=== PATIENT | male | born 1935 | race Asian ===

== ENCOUNTER 2022-04-29 16:04 | Inpatient (IN) | payer OTHER ==
[~2022-04-29] VITALS: Ht 170.2 cm; Wt 64.4 kg
--- NOTE | 2022-04-29 16:05 | NUR ---
RECEIVED PT 87 YRS MALE CAME BY SUHAS from home C/O GENRALIZED WEEKNESS ANd chest pain with palpation hr 165/min ekg at bed jerome
--- NOTE | 2022-04-29 16:15 | NUR ---
moe sent to lab
--- NOTE | 2022-04-29 16:45 | NUR ---
covid swab sent to lab
[2022-04-29 16:46] LABS: BASOPHILS # (AUTO) 0.1 K/uL (0.0-0.2); BASOPHILS % (AUTO) 0.2 % (0.0-2.0); EOSINOPHILS % (AUTO) 1.2 % (0.0-6.0); HEMATOCRIT 41 % (39-51); HEMOGLOBIN 13.4 g/dL (13.5-17.5); LYMPHOCYTES # (AUTO) 1.3 K/uL (0.8-4.8); LYMPHOCYTES % (AUTO) 5.9 % (20.0-44.0); MEAN CORPUSCULAR HGB CONC 32 g/dl (31.0-36.0); MEAN CORPUSCULAR VOLUME 92 fL (80-96); MONOCYTES # (AUTO) 1.5 K/uL (0.1-1.30); MONOCYTES % (AUTO) 6.7 % (2.0-12.0); PLATELET COUNT (AUTO) 490 K/uL (150-450); RED BLOOD CELL COUNT(AUTO) 4.49 MIL/uL (4.5-6.0); WHITE BLOOD COUNT (AUTO) 22.1 K/uL (4.3-11.0)
[2022-04-29 16:59] LABS: CALCIUM, SERUM 8.9 mg/dL (8.5-10.1); CARBON DIOXIDE 27 mmol/L (21-32); CHLORIDE 101 mmol/L (98-107); CREATININE 0.8 mg/dL (0.6-1.3); GLUCOSE 131 mg/dL (74-106); POTASSIUM 5.4 mmol/L (3.5-5.1); SODIUM SERUM 134 mmol/L (136-145); UREA NITROGEN, BLOOD 14 mg/dL (7-18)
--- NOTE | 2022-04-29 17:01 | NUR ---
UA SENT TO LAB
--- NOTE | 2022-04-29 17:12 | NUR ---
[facility] AT BED SIDE (MARCIAL GARCIA ) AT BED SIDE DR. YESSY BARFIELD WITH [facility] CONDITION UP DATE
[2022-04-29 17:17] LABS: THYROID STIMULATING HORMONE 1.605 uIU/mL (0.358-3.74)
[2022-04-29] MEDS ORDERED: CEFTRIAXONE 1GM BAG (ER ONLY) 50 ML IV ONE (17:30)
[2022-04-29] MEDS ORDERED: IV NS 0.9% 1,000 ML BAG IV ONE (17:30)
[2022-04-29] MEDS ORDERED: DOCUSATE SODIUM 100 MG CAPSULE PO PRN (17:30)
[2022-04-29] MEDS ORDERED: ACETAMINOPHEN 325 MG TABLET PO PRN (17:30)
[2022-04-29] MEDS ORDERED: DEXTROSE 50%-WATER 50 ML DISP.SYRIN IVP ONE (17:30)
[2022-04-29] MEDS ORDERED: MORPHINE SULFATE INJ 2 MG/ML DISP.SYRIN IV PRN (17:30)
[2022-04-29] MEDS ORDERED: INSULIN REGULAR, HUMAN 100 UNIT/ML 10 ML VIAL IV ONE (17:30)
[2022-04-29] MEDS ORDERED: MAG HYDROX/AL HYDROX/SIMETH 30 ML UDC PO PRN (17:30)
[2022-04-29] MEDS ORDERED: IV D5/ 0.9% NACL 1,000 ML IV PRN (17:30)
[2022-04-29] MEDS ORDERED: ONDANSETRON HCL/PF 4 MG/2 ML VIAL IVP PRN (17:30)
[2022-04-29] MEDS ORDERED: NTG 50 MG/D5W250 ML BOTTL 250 ML IV PRN (17:30)
[2022-04-29] MEDS ORDERED: NITROGLYCERIN 0.4 MG/TAB BOTTLE SL PRN (17:30)
--- NOTE | 2022-04-29 18:00 | NUR ---
HOSPITALIST PROVIDER AT BED SIDE ORDER WAS GIVEN
[2022-04-29 18:20] LABS: BILIRUBIN,URINE NEGATIVE (NEGATIVE); COLOR,URINE YELLOW (YELLOW); LEUKOCYTE ESTERASE ,URINE NEGATIVE (NEGATIVE); NITRITE, URINE NEGATIVE (NEGATIVE); PROTEIN,URINE NEGATIVE (NEGATIVE); UGLUCOSE NEGATIVE (NEGATIVE)
[2022-04-29 18:24] LABS: BACTERIA,URINE None seen /HPF (None Seen); MUCUS,URINE Few /LPF (None Seen); RBC,URINE 0-2 /HPF (0-2); SQUAMOUS EPITHELIAL CELL,UR 0-2 /HPF (None Seen); WBC,URINE 0-2 /HPF (0-3)
[2022-04-29] MEDS ORDERED: IV NS 0.9% 500 ML IV ONE (19:00)
--- NOTE | 2022-04-29 19:27 | NUR ---
HAND OFF TO [facility]
[2022-04-29 19:31] LABS: MAGNESIUM 2.5 mg/dL (1.8-2.4); PHOSPHORUS 4.6 mg/dL (2.5-4.9)
[2022-04-29 20:29] LABS: BILIRUBIN,DIRECT 0.2 mg/dL (0.0-0.2); BILIRUBIN,TOTAL 0.5 mg/dL (0.2-1.0)
--- NOTE | 2022-04-29 21:24 | NUR ---
REPORT GIVEN TO SYLVIA
[2022-04-29] MEDS: SIMVASTATIN 20 MG TABLET PO SCH (22:00)
--- NOTE | 2022-04-29 22:25 | NUR ---
PT TRANSPORTED VIA GURNEY AND ACLS PROTOCOL IN STABLE CONDITION
[2022-04-29 22:59] VITALS: BP 98/48
--- NOTE | 2022-04-29 23:13 | NUR ---
CERTIFIED BENCH JEWELER TECHNICIAN NOTES PT ARRIVED TO UNIT VIA GURNEY PT WAS ABLE TO TRANSFER TO BED ON HIS OWN WITH SOME STAND BY ASSIST . PT IS SPANISH SPEAKING BUT IS ABLE TO COMMUNICATE BASIC NEEDS.PT DAUGHTER AND AT BEDSIDE ABLE TO PROVIDE TRANSLATION. PT A/O X4 ON ROOM AIR TOLERATING WELL. PT PLACED ON A TELE MONITOR AT THIS TIME. PT NOTED WITH IV ACCESS ON RFA#20G S/L AND LAC #20G RUNNING D5 NS@50ML/HR TOLERATING WELL. PT DID REFUSE ATORVASTATIN PER DAUGHTER PT DOES NOT HAVE HIGH CHOLESTEROL EXPLAINED THAT IT IS PROTOCOL FOR PT WITH CHEST PAIN PT STILL REFUSED X3. PT DAUGHTER ALSO REFUSED TO GIVE A LIST OF MEDICATIONS TAKEN AT HOME PER DAUGHTER" ITS NOT LIKE YOU WILL GIVE HIM AT NIGHT ANYWAY, HES GOING HOME IN THE MORNING SOON POSSIBLE ITS NOT NECESSARY.' DID ASK THE DAUGHTER MARCIAL TO PLEASE PROVIDE A LIST IN THE MORNING IF IT IS POSSIBLE WILL LET DAY SHIFT NURSE KNOW TO FOLLOW UP. PT WAS NOTED WITH SOME SACRAL REDNESS PICTURE TAKEN AND PLACED IN CHART.PT ORIENTED TO UNIT AND ROOM. TABLE WITHIN REACH. CALL LIGHT WITHIN REACH. BILATERAL SIDE RAILS UP FOR SAFETY. ALL NEEDS MET AT THIS TIME. WILL CONTINUE TO MONITOR. Addendum: 04/29/22 at 2345 by SYLVIA BELL RN per daughter her father is refusing any further lab draws explained to the family why ist important we redraw the troponin. daughter insisted enough blood has been taken he doesn't need anymore.
--- NOTE | 2022-04-29 23:45 | NUR ---
TURBINE ENGINEER NOTES PT REFUSED LAB DRAW RISK AND BENEFITS EXPLAINED X3 REFUSED X3. WILL CONTINUE TO MONITOR.
[2022-04-30 00:36] VITALS: BP 105/54
[2022-04-30 05:10] VITALS: BP 100/47
--- NOTE | 2022-04-30 06:38 | NUR ---
INCOME TAX ADJUSTER NOTES PT IN BED ASLEEP IN NO DISTRESS CONTINUOUS TO BE ON ROOM AIR. ALL NURSING NEEDS MET. BEDSIDE TABLE WITHIN EACH. CALL LIGHT WITHIN REACH. BED ALARM ON FOR SAFETY. BILATERAL SIDE RAILS UP FOR SAFETY. PT ON TELE MONITOR READING SR. PT HAS D5 NS @50ML/HR RUINING WELL ON THE LAC #20G. PT DID REFUSE LABS LAST NIGH. WILL ENDORSE TO DAY SHIFT NURSE TO SEE IF PT WILL AGREE TO HAVE LABS DRAWN TODAY. ENDORSE RITESH TO DAY SHIFT NURSE.
--- NOTE | 2022-04-30 07:38 | NUR ---
SUPERVISOR SPRING UP NOTES PT IN BED ASLEEP BUT EASILY AWAKE,NO DISTRESS NOTED AT THIS TIME ,ON ROOM AIR.NO SOB NOTED AT THIS TIME ,ALL NEEDS MET. BEDSIDE TABLE WITHIN EACH. CALL LIGHT WITHIN REACH. BED ALARM ON FOR SAFETY. BILATERAL SIDE RAILS UP FOR SAFETY.. PT HAS D5 NS @50ML/HR RUINING WELL ON THE LAC #20G. ON TELE MONITORS SR WITH PVC OCCASIONAL, HR 83 AT THIS TIME, WILL CONT TO MONITOR
[2022-04-30 08:00] VITALS: BP 117/69
[2022-04-30] MEDS: ASPIRIN 81 MG TAB.CHEW PO SCH (08:19)
[2022-04-30] MEDS: ENOXAPARIN SODIUM 40 MG/0.4 ML DISP.SYRIN SQ SCH (08:21)
[2022-04-30 08:38] LABS: BASOPHILS # (AUTO) 0.1 K/uL (0.0-0.2); BASOPHILS % (AUTO) 0.3 % (0.0-2.0); EOSINOPHILS % (AUTO) 1.5 % (0.0-6.0); HEMATOCRIT 34 % (39-51); HEMOGLOBIN 11.4 g/dL (13.5-17.5); LYMPHOCYTES % (AUTO) 4.9 % (20.0-44.0); MEAN CORPUSCULAR HGB CONC 33 g/dl (31.0-36.0); MEAN CORPUSCULAR VOLUME 90 fL (80-96); MONOCYTES # (AUTO) 1.3 K/uL (0.1-1.30); MONOCYTES % (AUTO) 6.3 % (2.0-12.0); NEUTROPHILS # (AUTO) 18.6 K/uL (1.8-8.9); PLATELET COUNT (AUTO) 442 K/uL (150-450); WHITE BLOOD COUNT (AUTO) 21.3 K/uL (4.3-11.0)
[2022-04-30 09:18] LABS: ALANINE AMINOTRANSFERASE 10 U/L (12-78); ALKALINE PHOSPHATASE 77 U/L (46-116); ASPARTATE AMINOTRANSFERASE 12 U/L (15-37); BILIRUBIN,TOTAL 0.7 mg/dL (0.2-1.0); CALCIUM, SERUM 8.2 mg/dL (8.5-10.1); CARBON DIOXIDE 25 mmol/L (21-32); CHLORIDE 102 mmol/L (98-107); CREATININE 0.6 mg/dL (0.6-1.3); GLUCOSE 100 mg/dL (74-106); MAGNESIUM 2.1 mg/dL (1.8-2.4); PHOSPHORUS 3.1 mg/dL (2.5-4.9); POTASSIUM 4.1 mmol/L (3.5-5.1); SODIUM SERUM 132 mmol/L (136-145); UREA NITROGEN, BLOOD 9 mg/dL (7-18)
--- NOTE | 2022-04-30 09:28 | NUR ---
HAIR OR BEAUTY SALON MANAGER/MED RECON UNABLE TO UPDATE HOME MEDICATION INFORMATION AT THIS TIME. PATIENT UNABLE TO PROVIDE ANY INFORMATION. PER PATIENT REQUESTED CALLED DAUGHTER-REZA, PER DAUGHTER WILL PROVIDE INFORMATION LATER. CN MADE AWARE.
[2022-04-30] MEDS ORDERED: INSU100V7 SQ (10:58)
[2022-04-30] MEDS ORDERED: NATE120T6 PO (10:58)
[2022-04-30] MEDS ORDERED: DRON2.5C18 PO (10:58)
[2022-04-30] MEDS ORDERED: DEXT-164 PO (10:58)
[2022-04-30] MEDS ORDERED: INSU100V42 SQ (10:58)
[2022-04-30] MEDS ORDERED: TAMS-12 PO (10:58)
[2022-04-30] MEDS ORDERED: SITA100T PO (10:58)
[2022-04-30] MEDS ORDERED: METO25TA3 PO (10:58)
[2022-04-30] MEDS ORDERED: NITR0.4T48 SL (10:58)
[2022-04-30] MEDS ORDERED: MULT-447 PO (10:58)
[2022-04-30] MEDS ORDERED: LATA2.5D15 EACHEYE (10:58)
--- NOTE | 2022-04-30 11:50 | NUR ---
television analyzer note per marika rn test technician ok to mild sliding sale
[2022-04-30] MEDS: BLOOD SUGAR DIAGNOSTIC 1 EACH STRIP VI SCH ×3 (11:59→22:11)
[2022-04-30 12:00] VITALS: BP_SYST 109; BP_SYST 93; BP_DIAS 46; BP_DIAS 59
[2022-04-30] MEDS ORDERED: DEXTROSE 50%-WATER 50 ML DISP.SYRIN IV PRN (12:00)
[2022-04-30] MEDS: *INSULIN REGULAR(HUMULIN R)HUM 100 UNIT/ML VIAL SQ PRN (12:36)
--- NOTE | 2022-04-30 12:40 | NUR ---
telecom assistant note Samira solomon npo seen patient patient condition updated ,refused to eat lunch at this time stated that daughter is coming soon ,will f\u
[2022-04-30 13:38] LABS: IRON, SERUM 26 ug/dl (50-175); TOTAL IRON BINDING CAPACITY 113 ug/dl (250-450)
--- NOTE | 2022-04-30 14:03 | NUR ---
PER ONCOLOGIST EMERALD, FAXED AUTHORIZATION TO RELEASE RECORDS FROM [facility], TELEPHONE CONSENT DONE PER DAUGHTER
[2022-04-30 14:16] LABS: FERRITIN 611 ng/mL (8-388)
[2022-04-30 16:00] VITALS: BP 113/69
--- NOTE | 2022-04-30 16:52 | NUR ---
telegraphic service dispatcher note assisted to br able to ambulate with walker , able to urinate well
[2022-04-30] MEDS: INSULIN REGULAR, HUMAN 100 UNIT/ML 3 ML VIAL SQ PRN ×2 (17:17→22:14)
--- NOTE | 2022-04-30 18:52 | NUR ---
RN CLOSING NOTES: PATIENT ASLEEP IN BED BUT EASILY AROUSES WHEN CALLED BY NURSE. PATIENT IS ALERT, ORIENTED X 4. ON SR WITH HR OF 86. NO SOB, BREATHING EQUAL AND UNLABORED. PATIENT HAS IV SITE ON LEFT AC # 20 INFUSING WITH D5 NS @ 50 ML/HR, IV SITE, NOTED WITH NO INFILTRATION. BED LOCKED AND IN LOWEST POSITION, CALL LIGHT WITHIN REACH. WILL ENDORSE TO NEXT SHIFT NURSE FOR CONTINUITY OF CARE
[2022-04-30 20:00] VITALS: BP 119/69
[2022-04-30] MEDS: CEFTRIAXONE 1 G in IV D5W 50 ML IV SCH (20:08)
--- NOTE | 2022-04-30 22:04 | NUR ---
ORNITHOLOGY TEACHER OPENING NOTE PT RECEIVED IN BED, AWAKE, A&O X4, CALM, COOPERATIVE, MAINLY KYRGYZ-SPEAKING BUT IS ABLE TO MAKE NEEDS KNOWN WITH LITTLE ESTONIAN. PT ON RA WITH CURRENT O2SAT OF 95%; NO S/S OF RESP DISTRESS, NO SOB OR COUGH, NON-LABORED AND EQUAL BREATHING, APPEARS COMFORTABLE. PT ATTACHED TO EXTERNAL MONITOR SR WITH HR OF 90; NO COMPLAINT OF CHEST PAIN. PT AMBULATORY WITH STEADY GAIT USING WALKER. IV ACCESS ON RFA 20G AND LAC 20G WITH D5NS RUNNING AT 50 ML/HR; IV'S INTACT AND PATENT, FLUSHES EASILY WITH NO RESISTANCE. BED IN LOWEST POSITION, CALL LIGHT WITHIN REACH, SIDE RAILS UP X2. WILL CONTINUE TO MONITOR THROUGHOUT THE NIGHT.
[2022-04-30] MEDS: SIMVASTATIN 20 MG TABLET PO SCH (22:05)
[2022-05-01] VITALS: BP 113/64
[2022-05-01 04:00] VITALS: BP 117/69
--- NOTE | 2022-05-01 06:42 | NUR ---
RN NOTE PT REFUSED TO HAVE LABS TAKEN.
--- NOTE | 2022-05-01 06:50 | NUR ---
MONUMENT MASON CLOSING NOTE PT SITTING ON CHAIR, AWAKE, A&O X4, CALM, COOPERATIVE; SLEPT WELL THROUGHOUT THE NIGHT. REMAINS ON RA, O2SAT RANGED FROM 93%-95% DURING THE NIGHT, NO S/S OF RESP DISTRESS, NO SOB, NON-LABORED AND EQUAL BREATHING; NOTED TO HAVE NON-PRODUCTIVE COUGH. ATTACHED TO EXTERNAL MONITOR SR WITH HR RANGING FROM 90-97 LAST NIGHT. PT AMBULATORY WITH WALKER. IV ACCESS ON RFA 20G AND LAC 20G INTACT AND PATENT, FLUSHES EASILY WITH NO RESISTANCE. PT REPORTS HE WANTS TO BE DISCONNECTED FROM THE IV RIGHT NOW. ALL DUE MEDS ADMINISTERED DURING THE NIGHT. WILL ENDORSE TO DAYSHIFT NURSE TO CONTINUE CARE.
--- NOTE | 2022-05-01 07:35 | NUR ---
RN OPENING NOTES: RECEIVED PATIENT IN BED, AWAKE, ALERT AND ORIENTED X 4. BREATHING EVEN AND UNLABORED. NO SOB NOTED. ON SR WITH HR OF 90. HAS IV ACCESS ON RFA INFUSING WITH NS @ 50 ML/HR, NO S/S INFILTRATION NOTED. SALINE LOCK ON LAC # 2, PATENT AND FLUSHING WELL. HOB ELEVATED. BED LOCKED AND IN LOWEST POSITION. SAFETY MEASURES IN PLACE. CALL LIGHT WITHIN REACH. WILL CONTINUE TO MONITOR PATIENT THROUGHOUT SHIFT.
[2022-05-01 08:00] VITALS: BP 99/54
[2022-05-01 08:06] LABS: IMMUNOGLOBULIN A, SERUM 384 mg/dL (61-437); IMMUNOGLOBULIN G, SERUM 1224 mg/dL (603-1613); IMMUNOGLOBULIN M, SERUM 55 mg/dL (15-143)
[2022-05-01] MEDS: BLOOD SUGAR DIAGNOSTIC 1 EACH STRIP VI SCH ×4 (08:09→21:26)
[2022-05-01] MEDS: INSULIN REGULAR, HUMAN 100 UNIT/ML 3 ML VIAL SQ PRN ×3 (08:19→17:15)
[2022-05-01] MEDS: METOPROLOL TARTRATE 25 MG TABLET PO SCH ×2 (08:43→21:00)
[2022-05-01] MEDS: ASPIRIN 81 MG TAB.CHEW PO SCH (08:45)
[2022-05-01] MEDS: ENOXAPARIN SODIUM 40 MG/0.4 ML DISP.SYRIN SQ SCH (08:46)
--- NOTE | 2022-05-01 09:48 | NUR ---
PATIENT NOTED TO HAVE SVT WITH HR 175, PATIENT, AWAKE, ALERT, VERBALLY RESPONSIVE, INFORMED KINSEY GUIDO NP AND DR. HAYES DIRECTOR DIABETES. AWAITING FOR ORDERS.
--- NOTE | 2022-05-01 09:58 | NUR ---
OBTAINED NEW ORDERS FROM DR. HAYES FOR ADENOSINE, ORDER NOTED AND CARRIED OUT
--- NOTE | 2022-05-01 10:09 | NUR ---
PRIOR TO ADMINISTERING ADENOSINE, PATIENT CONVERTED TO SINUS TACH WITH HR OF 115. DR HAYES MADE AWARE WITH NEW ORDERS TO START AMIODARONE 400 MG PO BID. NOTED AND CARRIED OUT
[2022-05-01] MEDS ORDERED: ADENOSINE 6 MG/2 ML VIAL IVP ONE (10:10)
--- NOTE | 2022-05-01 10:30 | NUR ---
RN NOTE PATIENT REFUSED LAB DRAW, EXPLAINED IMPORTANCE OF THE LAB DRAW, PATIENT STILL REFUSED.
[2022-05-01] MEDS: TAMSULOSIN 0.4 MG CAP.SR.24H PO SCH (10:38)
[2022-05-01] MEDS: AMIODARONE HCL 200 MG TABLET PO SCH ×2 (10:39→21:03)
[2022-05-01] MEDS: LINAGLIPTIN 5 MG TABLET PO SCH (10:40)
[2022-05-01] MEDS: DRONABINOL (2.5 MG) 2.5 MG CAPSULE PO SCH ×3 (10:40→17:03)
[2022-05-01 12:00] VITALS: BP 105/66
[2022-05-01] MEDS ORDERED: MULTIVIT W/MINERALS 1 TAB TABLET PO SCH (15:00)
[2022-05-01 16:00] VITALS: BP 108/71
[2022-05-01] MEDS: MEGESTROL ACETATE 40 MG TABLET PO SCH (17:03)
[2022-05-01] MEDS ORDERED: DRONABINOL (2.5 MG) 2.5 MG CAPSULE PO SCH (17:30)
[2022-05-01] MEDS ORDERED: LATANOPROST EYE DROP 0.005% 2.5 ML BOTTLE EACHEYE SCH (18:00)
[2022-05-01] MEDS: NATEGLINIDE 60 MG TABLET PO SCH (18:26)
--- NOTE | 2022-05-01 18:54 | NUR ---
RN CLOSING NOTES: PATIENT IN BED ASLEEP BUT EASILY AROUSES TO VOICE. BREATHING EVEN AND UNLABORED. NO SOB NOTED. ON SR PER TELE MONITOR WITH HR OF 91. RFA IV ACCESS RUNNING WITH NS @ 50 ML/HR. SALINE LOCK INTACT ON LEFT AC. PATIENT HAS NO C.O PAIN OR DISCOMFORT AT THIS TIME. PATIENT VOIDED 1000 ML ON URINAL. BED KEPT IN LOWEST POSITION. CALL LIGHT WITHIN REACH, WILL ENDORSE TO NEXT SHIFT NURSE FOR CONTINUATION OF CARE.
[2022-05-01 20:00] VITALS: BP 102/61
--- NOTE | 2022-05-01 20:02 | NUR ---
RN NOTE ADENOSINE SCHEDULED TO BE GIVEN ONCE AT 1011 WAS NOT ADMINISTERED PT WAS ABLE TO CONVERT FROM SVT TO ST ON HIS OWN SPONTANEOUSLY.
[2022-05-01] MEDS: CEFTRIAXONE 1 G in IV D5W 50 ML IV SCH (20:06)
--- NOTE | 2022-05-01 21:04 | NUR ---
RN NOTE METOPROLOL SCHEDULED FOR 2100 HELD DUE TO PT'S BP OF 102/61, HR OF 97
[2022-05-01] MEDS: *INSULIN REGULAR(HUMULIN R)HUM 100 UNIT/ML VIAL SQ PRN (21:31)
--- NOTE | 2022-05-01 21:54 | NUR ---
WEATHERIZATION AND HOUSING INSPECTOR OPENING NOTE PT RECEIVED IN BED, AWAKE, A&O X4, CALM, COOPERATIVE. ON RA WITH CURRENT O2SAT OF 94%; NO S/S OF RESP DISTRESS, NO SOB, NON-LABORED AND EQUAL BREATHING; NOTED TO HAVE NON-PRODUCTIVE COUGH. PT ATTACHED TO EXTERNAL MONITOR, CURRENTLY SR WITH HR OF 97; WILL CLOSELY MONITOR FOR ANY SIGNS OF SVT. PT NOTED TO BE AMBULATORY WITH USE OF WALKER. IV ACCESS ON RFA 20G AND LAC 20G; CURRENTLY HAS NO FLUIDS/MEDS RUNNING THROUGH IT. BED IN LOWEST POSITION, CALL LIGHT WITHIN REACH, SIDE RAILS UP X2. WILL CONTINUE TO MONITOR THROUGHOUT THE NIGHT.
[2022-05-02] VITALS: BP 106/50
[2022-05-02 04:00] VITALS: BP 102/55
[2022-05-02 05:56] LABS: BASOPHILS % (AUTO) 0.2 % (0.0-2.0); HEMATOCRIT 35 % (39-51); HEMOGLOBIN 11.7 g/dL (13.5-17.5); LYMPHOCYTES # (AUTO) 1.3 K/uL (0.8-4.8); MEAN CORPUSCULAR HGB CONC 33 g/dl (31.0-36.0); MEAN CORPUSCULAR VOLUME 90 fL (80-96); MONOCYTES # (AUTO) 1.5 K/uL (0.1-1.30); NEUTROPHILS # (AUTO) 18.3 K/uL (1.8-8.9); NEUTROPHILS % (AUTO) 84.8 % (43.0-81.0); PLATELET COUNT (AUTO) 420 K/uL (150-450); RED BLOOD CELL COUNT(AUTO) 3.89 MIL/uL (4.5-6.0); WHITE BLOOD COUNT (AUTO) 21.6 K/uL (4.3-11.0)
--- NOTE | 2022-05-02 06:55 | NUR ---
PIN PUSHER CLOSING NOTE PT REMAINS IN BED, A&O X4, ASLEEP BUT EASILY AROUSABLE, SLEPT WELL THROUGHOUT THE NIGHT, CALM, COOPERATIVE. REMAINS ON RA WITH O2SAT 94% THROUGHOUT THE NIGHT. ATTACHED TO EXTERNAL MONITOR, SR THROUGHOUT THE WHOLE NIGHT WITH NO EPISODE OF SVT, HR RANGED FROM 77-97 DURING THE NIGHT. RFA 20G AND LAC 20G INTACT AND PATENT, FLUSHES EASILY WITH NO RESISTANCE; CURRENTLY HAS NO MEDS RUNNING THROUGH IT. PT HAD NO BM; NO STOOL WAS COLLECTED FOR OCCULT BLOOD. ALL DUE MEDS ADMINISTERED DURING THE NIGHT. BED IN LOWEST POSITION, CALL LIGHT WITHIN REACH, SIDE RAILS UP X2.
[2022-05-02 07:10] LABS: CALCIUM, SERUM 8.7 mg/dL (8.5-10.1); CARBON DIOXIDE 25 mmol/L (21-32); CHLORIDE 99 mmol/L (98-107); CREATININE 0.7 mg/dL (0.6-1.3); GLUCOSE 201 mg/dL (74-106); PHOSPHORUS 3.5 mg/dL (2.5-4.9); POTASSIUM 4.3 mmol/L (3.5-5.1); SODIUM SERUM 132 mmol/L (136-145); UREA NITROGEN, BLOOD 9 mg/dL (7-18)
--- NOTE | 2022-05-02 07:20 | NUR ---
RN OPENING NOTES RECEIVED PATIENT IN BED, AWAKE, ALERT AND ORIENTED X 4. BREATHING EVEN AND UNLABORED. NO SOB OR ANY RESPIRATORY DISTRESS NOTED AT THE TIME. ON TELE MONITOR READING SR WITH HR OF 85. IV ACCESS NOTED ON RFA #20G AND LAC #20G, INTACT AND PATENT AND FLUSHING WELL. ALL SAFETY MEASURES IN PLACE. HOB ELEVATED. BED LOCKED AND IN LOWEST POSITION WITH SIDERAILS UP WITH CALL LIGHT WITHIN REACH. WILL CONTINUE TO MONITOR PATIENT THROUGHOUT SHIFT.
[2022-05-02] MEDS: BLOOD SUGAR DIAGNOSTIC 1 EACH STRIP VI SCH ×2 (07:49→12:11)
[2022-05-02] MEDS: NATEGLINIDE 60 MG TABLET PO SCH ×2 (07:49→12:07)
[2022-05-02] MEDS: INSULIN REGULAR, HUMAN 100 UNIT/ML 3 ML VIAL SQ PRN ×2 (07:51→12:10)
[2022-05-02 08:00] VITALS: BP 107/57
[2022-05-02 08:06] LABS: *SPE A/G RATIO 0.7 (0.7-1.7); *SPE ALPHA-1-GLOBULIN 0.3 g/dL (0.0-0.4); *SPE ALPHA-2-GLOBULIN 0.7 g/dL (0.4-1.0); *SPE M-SPIKE 0.2 g/dL (Not Observed)
[2022-05-02] MEDS ORDERED: DRONABINOL (2.5 MG) 2.5 MG CAPSULE PO SCH (09:00)
[2022-05-02] MEDS ORDERED: INSULIN GLARGINE, 100 UNIT/ML CARTRIDGE SQ SCH (09:00)
[2022-05-02] MEDS ORDERED: MULTIVIT W/MINERALS 1 TAB TABLET PO SCH (09:00)
[2022-05-02] MEDS: ASPIRIN 81 MG TAB.CHEW PO SCH (09:27)
[2022-05-02] MEDS: AMIODARONE HCL 200 MG TABLET PO SCH (09:28)
[2022-05-02] MEDS: LINAGLIPTIN 5 MG TABLET PO SCH (09:29)
[2022-05-02] MEDS: TAMSULOSIN 0.4 MG CAP.SR.24H PO SCH (09:29)
[2022-05-02] MEDS: METOPROLOL TARTRATE 25 MG TABLET PO SCH (09:29)
[2022-05-02] MEDS: ENOXAPARIN SODIUM 40 MG/0.4 ML DISP.SYRIN SQ SCH (09:30)
[2022-05-02] MEDS: MEGESTROL ACETATE 40 MG TABLET PO SCH (09:34)
[2022-05-02] MEDS: DRONABINOL (2.5 MG) 2.5 MG CAPSULE PO SCH ×2 (09:38→12:08)
[2022-05-02] MEDS ORDERED: AMIO200T7 PO (10:10)
[2022-05-02] MEDS ORDERED: MEGE40TA7 PO (10:10)
[2022-05-02 12:00] VITALS: BP 95/60
--- NOTE | 2022-05-02 13:10 | NUR ---
RN NOTE PATIENT DISCHARGED IN STABLE CONDITION. PATIENT AWAKE, ALERT/ORIENTED X4, ABLE TO MAKE NEEDS KNOWN. PATIENT ON ROOM AIR TOLERATING WELL. BREATHING UNLABORED. NO SOB OR ANY RESPIRATORY DISTRESS NOTED AT THE TIME. IV ACCESS REMOVED, NO BLEEDING NOTED. ALL BELONGINGS ACCOUNTED FOR AND GIVEN TO PATIENT. DISCHARGED INSTRUCTIONS GIVEN TO PATIENT. ALL DUE MEDS GIVEN ORDERED. ALL NEEDS ANTICIPATED. KEPT PATIENT CLEAN DRY AND COMFORTABLE. PATIENT WHEELED OUT OF HOSPITAL TO PRIVATE CAR. PATIENT LEFT IN STABLE CONDITION WITH DAUGHTER MARCIAL.
== END 2022-05-02 14:17 | disposition home or self-care (01) | DRG 309 ==
LOC: ER 16:07 → TRANSITION 19:42 → TELE1 21:28
PROVIDERS: ADMIT Registered Nurse; ATTEND Internal Medicine
DX: I47.1 Supraventricular tachycardia (principal); C34.90 Malignant neoplasm of unspecified part of unspecified bronchus or lung; E87.2 Acidosis; E22.2 Syndrome of inappropriate secretion of antidiuretic hormone; E86.0 Dehydration; R62.7 Adult failure to thrive; E78.5 Hyperlipidemia, unspecified; I10 Essential (primary) hypertension; E11.9 Type 2 diabetes mellitus without complications; E87.5 Hyperkalemia; E88.09 Other disorders of plasma-protein metabolism, not elsewhere classified; Z87.891 Personal history of nicotine dependence; D64.9 Anemia, unspecified; D72.829 Elevated white blood cell count, unspecified; R13.10 Dysphagia, unspecified
CPT/HCPCS: 36415; 71045-TC; 80048-TC; 80053-TC; 81001; 82247-TC; 82248-TC; 82607-TC; 82728-TC; 82784; 82962-TC; 83540-TC; 83605-TC; 83735-TC; 84100-TC; 84155; 84165; 84439-TC; 84443-TC; 84484-TC; 85025-TC; 86334; 87040-TC; 87081-TC; 87086-TC; 92526; 92611-TC; 93307-TC; 97116-TC; 97530-TC; A6403; C9803; G0378; J0696; J1650; J1815; J2270; J2405; J7030; J7040; J7042; J7050; J7060; Q0167